=== PATIENT | female | born 1980 | race African-American/Black ===

== ENCOUNTER 2021-02-17 13:32 | Emergency (ER) | payer SELFPAY ==
[~2021-02-17] VITALS: Ht 154.9 cm; Wt 74.7 kg
[2021-02-17] MEDS ORDERED: KETOROLAC 30 MG/ML VIAL IVP STA (13:54)
[2021-02-17] MEDS ORDERED: NS IV 1000 ML 1,000 ML IV STA (13:54)
[2021-02-17 14:00] LABS: COLOR,URINE PALE YELLOW
[2021-02-17 14:01] LABS: BACTERIA,URINE NEGATIVE /HPF; BILIRUBIN,URINE NEGATIVE (NEGATIVE); CLARITY,URINE CLEAR; GLUCOSE, URINE (UA) NEGATIVE (NEGATIVE); KETONES,URINE NEGATIVE (NEGATIVE); LEUKOCYTE ESTERASE ,URINE NEGATIVE (NEGATIVE); NITRITE,URINE NEGATIVE (NEGATIVE); PH,URINE 6.5 (5-9); PROTEIN,URINE NEGATIVE (NEGATIVE); WBC,URINE 0-2 /HPF
--- NOTE | 2021-02-17 14:12 | ED GU-Female ---
General Chief Complaint: Female Reproductive Stated Complaint: SUPRAPUBIC PAIN History of Present Illness Date Seen by Provider: Feb 17, 2021 Time Seen by Provider: 13:50 Initial Comments Ms. Dickey is a 40-year-old female who presented to the [place] ED from the [facility] walk-in care for suprapubic pain. It began between [id number] on 02/16. She states it is a 10/10 on the pain scale and feels like a "knife stabbing" her. It is associated with severe dyspareunia as well. Patient denies new or changing vaginal discharge or dysuria. She is monogamous with this partner and has no history of STIs. She also localizes the pain to her RLQ and states it is a constant pain. She has tried ibuprofen to help but it does not. Walking or sitting worsens the pain. It has "been a while" since her most recent pap and has no history of an abnormal pap smear in her lifetime. Cycles have been regular and started on 02/08 of this month, started at age 11-12. She presented to the [facility] walk-in in [place] for presumptive UTI. U/A there was normal so she was sent to the ED for further work up. Timing/Duration: yesterday Severity/Quality: severe, stabbing Location: RLQ, suprapubic Prior Genitourinary Problems: none Sexual [place] History: less than 2 months ago, single partner Modifying Factors: Improves With Analgesics; Worsens With Exercise, Worsens With Movement Associated Symptoms: fever/chills (JULIA AVALOS,) Associated Symptoms: abdominal pain; No nausea/vomiting, No urinary frequency (HERNANDEZ PATEL MD) Allergies and Home Medications Allergies Coded Allergies: No Known Drug Allergies (Unverified , 02/17/21) Patient Home Medication List Home Medication List Reviewed: Yes (JULIA AVALOS,) Home Medication List Reviewed: Yes (HERNANDEZ PATEL MD) Review of Systems Review of Systems Constitutional: chills EENTM: No blurred vision Respiratory: No cough, No short of breath Cardiovascular: No chest pain, No palpitations Gastrointestinal: abdominal pain (RLQ); No melena; nausea Genitourinary: denies burning, denies discharge Musculoskeletal: No back pain, No joint pain Skin: No dryness, No rash Psychiatric/Neurological: Anxiety, Depressed Endocrine: No Symptoms Reported Hematologic/Lymphatic: No Symptoms Reported (JULIA AVALOS,) Constitutional: chills; No fever Gastrointestinal: abdominal pain (RLQ), melena Genitourinary: discharge (Unchanged typical discharge); denies dysuria; pain (Suprapubic) : No (HERNANDEZ PATEL MD) All Other Systemes Reviewed Negative Unless Noted: Yes (HERNANDEZ PATEL MD) Past Njamats-Qbwfbq-Njxexj Hx Past Med/Social Hx: Reviewed Nursing Past Med/Soc Hx (HERNANDEZ PATEL MD) Patient Social History Alcohol Use: Rarely Uses Smoking Status: Never a Smoker 2nd Hand Smoke Exposure: No Recent Hopitalizations: No (JULIA AVALOS) Seasonal Allergies Seasonal Allergies: No (JULIA AVALOS) Past Medical History Surgeries: No Respiratory: No Cardiac: No Neurological: No Genitourinary: No Gastrointestinal: No Musculoskeletal: No Endocrine: No HEENT: No Cancer: No Psychosocial: No Integumentary: No Blood Disorders: No (JULIA AVALOS) Family Medical History Reviewed Nursing Family Hx (HERNANDEZ PATEL MD) No Pertinent Family Hx (JULIA AVALOS,) No Pertinent Family Hx (HERNANDEZ PATEL MD) Physical Exam Vital Signs Vital Signs - First Documented 02/17/21 13:37 Temp 36.8 Pulse 93 Resp 18 B/P (MAP) 159/87 (111) Pulse Ox 100 O2 Delivery Room Air (HERNADNEZ PATEL MD) Vital Signs Capillary Refill : (JULIA AVALOS,) Height, Weight, BMI Height: '" Weight: lbs. oz. kg; BMI Method: General Appearance: WD/WN, mild distress HEENT: PERRL/EOMI Neck: supple, normal inspection Cardiovascular: regular rate, rhythm, no murmur Respiratory: lungs clear, normal breath sounds Gastrointestinal: normal bowel sounds, guarding, rebound, tenderness Back: normal inspection, no CVA tenderness Extremities: no pedal edema, normal capillary refill Neurologic/Psychiatric: alert, normal mood/affect, oriented x 3 Skin: normal color, warm/dry (JULIA AVALOS,) General Appearance: WD/WN, mild distress Cardiovascular: regular rate, rhythm, no murmur Respiratory: lungs clear, normal breath sounds Gastrointestinal: No guarding, No rebound; tenderness (Suprapubic and to a lesser extent right lower quadrant) Back: normal inspection, no CVA tenderness Extremities: normal inspection, no pedal edema, normal capillary refill Neurologic/Psychiatric: alert, oriented x 3 Skin: normal color, warm/dry (HERNANDEZ PATEL MD) Progress/Results/Core Measures Suspected Sepsis SIRS Temperature: Pulse: Respiratory Rate: Blood Pressure / Mean: (ROBBIE,JULIA,) Results/Orders Lab Results Laboratory Tests Test 02/17/21 13:40 02/17/21 14:10 Range/Units Urine Color PALE YELLOW Urine Clarity CLEAR Urine pH 6.5 5-9 Urine Specific Tiff <=1.005 1.016-1.022 Urine Protein NEGATIVE NEGATIVE Urine Glucose (UA) NEGATIVE NEGATIVE Urine Ketones NEGATIVE NEGATIVE Urine Nitrite NEGATIVE NEGATIVE Urine Bilirubin NEGATIVE NEGATIVE Urine Urobilinogen 0.2 < = 1.0 MG/DL Urine Leukocyte Esterase NEGATIVE NEGATIVE Urine RBC (Auto) NEGATIVE NEGATIVE Urine RBC NONE /HPF Urine WBC 0-2 /HPF Urine Squamous Epithelial Cells 5-10 /HPF Urine Crystals NONE /LPF Urine Bacteria NEGATIVE /HPF Urine Casts NONE /LPF Urine Mucus NEGATIVE /LPF Urine Culture Indicated NO White Blood Count 7.9 4.3-11.0 10^3/uL Red Blood Count 4.24 L 4.35-5.85 10^6/uL Hemoglobin 11.3 L 11.5-16.0 G/DL Hematocrit 36 35-52 % Mean Corpuscular Volume 84 80-99 FL Mean Corpuscular Hemoglobin 27 25-34 PG Mean Corpuscular Hemoglobin Concent 32 32-36 G/DL Red Cell Distribution Width 14.6 H 10.0-14.5 % Platelet Count 471 H 130-400 10^3/uL Mean Platelet Volume 9.6 7.4-10.4 FL Immature Granulocyte % (Auto) 0 % Neutrophils (%) (Auto) 64 42-75 % Lymphocytes (%) (Auto) 27 12-44 % Monocytes (%) (Auto) 7 0-12 % Eosinophils (%) (Auto) 2 0-10 % Basophils (%) (Auto) 1 0-10 % Neutrophils # (Auto) 5.0 1.8-7.8 X 10^3 Lymphocytes # (Auto) 2.1 1.0-4.0 X 10^3 Monocytes # (Auto) 0.6 0.0-1.0 X 10^3 Eosinophils # (Auto) 0.1 0.0-0.3 10^3/uL Basophils # (Auto) 0.0 0.0-0.1 10^3/uL Immature Granulocyte # (Auto) 0.0 0.0-0.1 10^3/uL Sodium Level 136 135-145 MMOL/L Potassium Level 3.8 3.6-5.0 MMOL/L Chloride Level 104 98-107 MMOL/L Carbon Dioxide Level 23 21-32 MMOL/L Anion Gap 9 5-14 MMOL/L Blood Urea Nitrogen 12 7-18 MG/DL Creatinine 0.60 0.60-1.30 MG/DL Estimat Glomerular Filtration Rate > 60 BUN/Creatinine Ratio 20 Glucose Level 90 70-105 MG/DL Calcium Level 8.3 L 8.5-10.1 MG/DL Corrected Calcium 8.1 L 8.5-10.1 MG/DL Total Bilirubin 0.2 0.1-1.0 MG/DL Aspartate Amino Transf (AST/SGOT) 17 5-34 U/L Alanine Aminotransferase (ALT/SGPT) 15 0-55 U/L Alkaline Phosphatase 90 40-136 U/L C-Reactive Protein 0.08 <0.50 MG/DL Total Protein 7.4 6.4-8.2 GM/DL Albumin 4.3 3.2-4.5 GM/DL (HERNANDEZ PATEL MD) Micro Results Microbiology 02/17/21 Wet Prep - Final, Complete (HERNANDEZ PATEL MD) My Orders Orders - HERNANDEZ PATEL MD Ua Culture If Indicated (02/17/21 13:48) Urine Bedside (02/17/21 13:49) Cbc With Automated Diff (02/17/21 13:54) Comprehensive Metabolic Panel (02/17/21 13:54) Crp Fs (02/17/21 13:54) Wet Prep (02/17/21 13:54) Ns Iv 1000 Ml (Sodium Chloride 0.9%) (02/17/21 13:54) Ed Iv/Invasive Line Start (02/17/21 13:54) Ketorolac Injection (Toradol Injection) (02/17/21 13:54) Chlamydia Trachomatis Urine (02/17/21 13:54) Neis Thanh Dna Urine Test (02/17/21 13:54) Metronidazole Tablet (Flagyl Tablet) (02/17/21 15:10) (HERNANDEZ PATEL MD) Vital Signs/I&O 02/17/21 02/17/21 13:37 14:18 Temp 36.8 36.8 Pulse 93 Resp 18 B/P (MAP) 159/87 (111) Pulse Ox 100 O2 Delivery Room Air (HERNANDEZ PATEL MD) Vital Signs/I&O Capillary Refill : (JULIA AVALOS,) Progress Note : Time: 14:13 Progress Note Repeat U/A, STI testing, wet prep, pain control with toradol, CBC, CMP, CRP ordered. U/S not here as tech has left for the day. Will monitor further and decide on imaging based on lab work and other testing. (JULIA AVALOS,) Progress Note : Progress Note I have seen and evaluated the patient and agree with above except as indicated. I have directed the plan of care. Patient is here with mainly suprapubic abdo sulema pain that started yesterday and worsened with sexual activity last night. Denies any significant change in vaginal discharge. States the last time she had pain like that she had bacterial vaginosis. She is monogamous with her partner but is unsure if her partner is monogamous. States pain is quite sharp. Had UA done earlier and found to be normal. This was done at clinic and she was sent over here for further evaluation. We did discuss with her different work-up options. Initially we will get basic labs and self-administered wet prep as well as give Toradol 30 mg IV and a liter of fluid. Monitor patient. 1510: Labs are benign other than wet prep which does show clue cells. No indication of sexually transmitted diseases but results are pending from urine. I did discuss with her regarding the labs and current evaluation with regard to further evaluation. Options include CT scan abdomen pelvis to rule out appendicitis versus conservative approach of initiation of antibiotics and return for recheck. Patient's pain is improved now and has no rebound or guarding. She would prefer the conservative approach. Metronidazole 500 mg p.o. now and we will initiate that twice daily outpatient for 7 days. Discharged home with return precautions. Patient verbalized understanding of instructions and agreement with plan. (HERNANDEZ PATEL MD) Departure Impression Primary Impression: Bacterial vaginosis Disposition: HOME, SELF-CARE Condition: Improved Departure-Patient Inst. Decision time for Depature: 15:21 (HERNANDEZ PATEL MD) Referrals: NO,LOCAL PHYSICIAN (PCP/Family) Primary Care Physician Patient Instructions: Bacterial Vaginosis ED Add. Discharge Instructions: All discharge instructions reviewed with patient and/or family. Voiced understanding. Take medications as directed. You may take ibuprofen 800 mg every 8 hours as needed for pain. You may also take Tylenol/acetaminophen 1000 mg every 8 hours as needed for pain. Drink plenty of fluids. Follow-up with your doctor in a few days for recheck. Return here tomorrow for recheck and further evaluation if pain persists and return earlier if worsens. Return for worse pain, fever, vomiting, weakness, breathing problems or other concerns as needed. Scripts Metronidazole (Metronidazole) 500 Mg Tablet 500 MG PO BID, #14 TAB 0 Refills Prov: HERNANDEZ PATEL MD 02/17/21 JULIA AVALOS, Feb 17, 2021 14:12 HERNANDEZ PATEL MD Feb 17, 2021 15:20
[2021-02-17 14:28] LABS: HEMATOCRIT 36 % (35-52); HEMOGLOBIN 11.3 G/DL (11.5-16.0); MEAN CORPUSCULAR HEMOGLOBIN 27 PG (25-34); MEAN CORPUSCULAR HGB CONC 32 G/DL (32-36); MEAN CORPUSCULAR VOLUME 84 FL (80-99); MEAN PLATELET VOLUME 9.6 FL (7.4-10.4); PLATELET COUNT 471 10^3/uL (130-400); WHITE BLOOD COUNT 7.9 10^3/uL (4.3-11.0)
[2021-02-17 14:29] LABS: BASOPHILS % (AUTO) 1 % (0-10); EOSINOPHILS # (AUTO) 0.1 10^3/uL (0.0-0.3); EOSINOPHILS % (AUTO) 2 % (0-10); LYMPHOCYTES # (AUTO) 2.1 X 10^3 (1.0-4.0); LYMPHOCYTES % (AUTO) 27 % (12-44); MONOCYTES # (AUTO) 0.6 X 10^3 (0.0-1.0); MONOCYTES % (AUTO) 7 % (0-12); NEUTROPHILS % (AUTO) 64 % (42-75)
[2021-02-17 14:40] LABS: ALANINE AMINOTRANSFERASE 15 U/L (0-55); ALBUMIN 4.3 GM/DL (3.2-4.5); ALKALINE PHOSPHATASE 90 U/L (40-136); BILIRUBIN,TOTAL 0.2 MG/DL (0.1-1.0); BUN/CREATININE RATIO 20; CALCIUM 8.3 MG/DL (8.5-10.1); CARBON DIOXIDE 23 MMOL/L (21-32); CHLORIDE 104 MMOL/L (98-107); GFR ESTIMATED > 60; GLUCOSE 90 MG/DL (70-105); POTASSIUM 3.8 MMOL/L (3.6-5.0); SODIUM 136 MMOL/L (135-145); TOTAL PROTEIN 7.4 GM/DL (6.4-8.2)
[2021-02-17] MEDS ORDERED: metroNIDAZOLE 500 MG (FLAGYL) TAB PO STA (15:10)
[2021-02-17] MEDS ORDERED: METR-145 PO (15:23)
[2021-02-17 15:28] VITALS: BP 150/84
== END 2021-02-17 15:28 | disposition home or self-care (01) ==
LOC: ER FS 13:35
DX: N76.0 Acute vaginitis (principal); I10 Essential (primary) hypertension
CPT/HCPCS: 36415; 80053; 81000; 84703; 85025; 86141; 87210; 87491; 87591